=== PATIENT | female | born 1950 | race Caucasian/White ===

== ENCOUNTER 2021-05-20 09:47 | Outpatient (CLI) | payer MEDICARE, SELFPAY ==
--- NOTE | ~2021-05-20 | DEXA_ITS ---
Bone Density Report Name: Barbara Bynum Age: 71 Sex: Female Ethnicity: White Date of : 1950 Indication: osteopenia; monitoring treatment; height loss; prior fracture; postmenopausal Referring Provider: ANNABEL TEJADA Study: Bone densitometry was performed. Exam Date: May 20, 2021 Accession number: [id number] Bone Density: Region BMD T-score Z-score Classification AP Spine (L1-L4) 0.812 -2.1 0.0 Osteopenia Femoral Neck (Left) 0.550 -2.7 -0.9 Osteoporosis Total Hip (Left) 0.649 -2.4 -0.9 Osteopenia Total Hip Bilateral Avg 0.698 -2.0 -0.5 Osteopenia Femoral Neck (Right) 0.659 -1.7 0.1 Osteopenia Total Hip (Right) 0.747 -1.6 -0.1 Osteopenia World Health Organization criteria for BMD impression classify patients as: Normal (T-score at or above -1.0), Osteopenia (T-score between -1.0 and -2.5), or Osteoporosis (T-score at or below -2.5). 10-year Fracture Risk: FRAX not reported because: Some T-score for Spine Total or Hip Total or Femoral Neck at or below -2.5 Treated for osteoporosis Previous Exams: Region Exam Age BMD T-score BMD Change BMD Change Date g/cm2 vs Baseline vs Previous AP Spine(L1-L4) 05/20/2021 71 0.812 -2.1 -0.040(-4.7%)* -0.048(-5.5%)* 03/30/2019 69 0.860 -1.7 0.007(0.8%) 0.007(0.8%) 01/21/2017 66 0.853 -1.8 Total Hip(Left) 05/20/2021 71 0.649 -2.4 -0.064(-8.9%)* -0.043(-6.2%)* 03/30/2019 69 0.691 -2.1 -0.021(-3.0%) -0.021(-3.0%) 01/21/2017 66 0.712 -1.9 Total Hip(Right) 05/20/2021 71 0.747 -1.6 -0.031(-4.0%)* -0.001(-0.2%) 03/30/2019 69 0.748 -1.6 -0.030(-3.8%)* -0.030(-3.8%)* 01/21/2017 66 0.778 -1.3 *Denotes significance at 95% confidence level, LSC for AP Spine = 0.022 g/cm2, LSC for Total Hip = 0.027 g/cm2 Clinical Information Provided by Patient: Has had a low trauma fracture Is being treated for osteoporosis Has used the following medications: Vitamin D Patient maximum height was 68.5 Menopause Age: 54 No regular weight bearing exercise Does not regularly consume dairy products Onset of menses at age 14 Number of children 3 Impression: The patient has established osteoporosis, based on the Left Femoral Neck T-score and the existence of a prior fracture. The patient has risk factors, including: previous fracture. The BMD for the AP Spine(L1-L4) decreased, changing by -5.5% since the last DXA exam. The BMD for the Total Hip(Left) decreased, changing by -6.2% since the last DX
== END 2021-05-20 09:48 | disposition home or self-care (01) ==
DX: Z78.0 Asymptomatic menopausal state (principal); M85.88 Other specified disorders of bone density and structure, other site; M85.852 Other specified disorders of bone density and structure, left thigh; M85.851 Other specified disorders of bone density and structure, right thigh; M81.0 Age-related osteoporosis without current pathological fracture
CPT/HCPCS: 77080

== ENCOUNTER 2021-07-16 16:47 | Emergency (ER) | payer MEDICARE, SELFPAY ==
[2021-07-16 17:09] VITALS: BP 158/88; PULSE 77; RESP 18; TEMP 37.7; O2SAT 99
--- NOTE | 2021-07-16 17:22 | ED.LOWEXIN ---
HPI - Extremity Injury (Lower) General Chief Complaint: Extremity Problem,Nontraumatic Stated Complaint: Lt lower leg pain Source: patient and RN notes reviewed Limitations: no limitations History of Present Illness HPI Narrative: The patient, active on few meds, presents with left distal knee/proximal calf pain. Patient states she has 1/2-week history of medial gastroc pain that is mild, worse with motion, better at rest. Patient recalls she got out of bed quickly then and heard a audible snap followed by pain-which has been gradually improving.. No distal calf pain, Achilles tenderness, bleeding, deformity; she repeatedly declined hospital referral for higher level testing/scanning [for DVT, Moreland's cyst, etc.]. Related Data Home Medications Medication Instructions Recorded Confirmed amlodipine 2.5 mg-benazepril 10 mg 1 cap PO DAILY 05/07/21 07/16/21 capsule atorvastatin 10 mg tablet 10 mg PO DAILY 05/07/21 07/16/21 cholecalciferol (vitamin D3) 50 50 mcg PO DAILY 05/07/21 07/16/21 mcg (2,000 unit) capsule melatonin 3 mg capsule 3 mg PO QHS 05/07/21 07/16/21 pantoprazole 40 mg tablet,delayed 40 mg PO QAM 05/07/21 07/16/21 release trazodone 50 mg tablet 50 mg PO QHS PRN 05/07/21 07/16/21 vitamin B complex 1 tablet PO DAILY 05/07/21 07/16/21 Allergies Allergy/AdvReac Type Severity Reaction Status Date / Time No Known Allergies Allergy Verified 07/16/21 17:03 Review of Systems Review of Systems: General/Constitutional: No weight loss,fever Eyes: N0: Redness,discharge Ears/Nose/Throat: No: Epistaxis,ear discharge Respiratory: Denies: Hemoptysis Gastrointestinal: No Vomiting, Bleeding-rectal Skin: No Lumps, eruption Neurologic: No Focal Weakness,Sz Hematologic: Denies: Petechiae/Purpura Psychiatric: No: Suicida ideationl All Other Systems: Reviewed and Negative [facility] Past Medical History Medical History Ankle sprain Claustrophobia Degenerative joint disease of knee Fracture of 5th metatarsal GERD (gastroesophageal reflux disease) Hypertension Kidney disease Knee effusion, right Osteoporosis Right ankle pain Surgical History Surgical History History of hand surgery History of stapedectomy Family History Family History Other Diabetes mellitus Family history of arthritis Hypertension Kidney disorder Social History Social History Alcohol intake: current Alcohol use details: 12 per year Substance use: never Substance use type: does not use Gender identity (if verbalized by the patient): Female Comments At time of signature, agree with nursing past medical, surgical, social and family history. There is no relevant family history pertinent to the presenting complaint Exam Narrative: General Appearance: Well appearing, Conjunctiva clear Ears: External ear normal, Auditory canal normal Nose: Normal nose, Nares clear Mouth/Throat: Normal appearing, Normal lips Neck: Supple Respiratory: Airway patent, No respiratory distress MS- LLE: Normal strength (mostly intact,sl limited flexion/extension by pain), Tenderness (proximal medial gastrocnemius, with mild decreased ROM), Scant swelling (medially), Other (no anterior drawer, no collateral laxity, no Roberson test, nor Homans test) Skin: Warm, Dry, Normal color Neurological: A&O x3, Normal affect Course Vital Signs Vital signs: Vital Signs Temperature 99.8 F H 07/16/21 17:09 Pulse Rate 77 07/16/21 17:09 Respiratory Rate 18 07/16/21 17:09 Blood Pressure 158/88 H 07/16/21 17:09 Pulse Oximetry 99 07/16/21 17:09 Temperature 99.8 F H 07/16/21 17:09 Pulse Rate 77 07/16/21 17:09 Respiratory Rate 18 07/16/21 17:09 Blood Pressure 158/88 H 07/16/21 17:09 Pulse Oximetry 99 07/16/21 17:09
== END 2021-07-16 17:31 | disposition home or self-care (01) ==
PROVIDERS: Emergency Provider Emergency Medicine
DX: S86.112A Strain of other muscle(s) and tendon(s) of posterior muscle group at lower leg level, left leg, initial encounter (principal); X50.9XXA Other and unspecified overexertion or strenuous movements or postures, initial encounter; M17.10 Unilateral primary osteoarthritis, unspecified knee; K21.9 Gastro-esophageal reflux disease without esophagitis; I10 Essential (primary) hypertension; M81.0 Age-related osteoporosis without current pathological fracture
CPT/HCPCS: 99212; G0463

== ENCOUNTER 2021-10-31 16:28 | Emergency (ER) | payer MEDICARE, SELFPAY ==
[2021-10-31 16:37] VITALS: BP 150/92; PULSE 76; RESP 18; TEMP 37.3; O2SAT 99
--- NOTE | 2021-10-31 17:10 | ED.FEMALEGU ---
HPI - Female Genitourinary General Chief complaint: Urogenital-Female Stated complaint: Possible UTI Time Seen by Provider: 10/31/21 16:50 Source: patient, RN notes reviewed and old records reviewed Mode of arrival: ambulatory Limitations: no limitations History of Present Illness HPI Narrative: 71 year old female who presents to [facility] care with complaints of frequency of urination and burning with urination which started today. Patient states that she does have some perineal pressure but denies any lower back pain or any flank pain. Patient states that she does have Stage III renal disease and sees kidney specialist. Patient denies any nausea or vomiting or any fevers chills or sweats, denies vaginal discharge or concern for STD's. MD elicited complaint: dysuria and other (urinary frequency) Related Data Home Medications Medication Instructions Recorded Confirmed amlodipine 2.5 mg-benazepril 10 mg 1 cap PO DAILY 05/07/21 10/31/21 capsule atorvastatin 10 mg tablet 10 mg PO DAILY 05/07/21 10/31/21 cholecalciferol (vitamin D3) 50 50 mcg PO DAILY 05/07/21 10/31/21 mcg (2,000 unit) capsule melatonin 3 mg capsule 3 mg PO QHS 05/07/21 10/31/21 pantoprazole 40 mg tablet,delayed 40 mg PO QAM 05/07/21 10/31/21 release trazodone 50 mg tablet 50 mg PO QHS PRN 05/07/21 10/31/21 vitamin B complex 1 tablet PO DAILY 05/07/21 10/31/21 Allergies Allergy/AdvReac Type Severity Reaction Status Date / Time No Known Allergies Allergy Verified 10/31/21 16:43 Review of Systems Review of Systems: CONSTITUTIONAL: Denies fever, chills, or sweats. EYES: Denies visual changes, redness, or discharge. ENT: Denies rhinorrhea, congestion, sore throat, or otalgia. CARDIOVASCULAR: Denies chest pain, palpitations, or edema. RESPIRATORY: Denies cough or dyspnea. GASTROINTESTINAL: Denies abdominal pain, nausea, vomiting, or diarrhea. GENITOURINARY:Positive for perineal pressure and dysuria or hematuria with urinary frequency SKIN: Denies rash or itching. MUSCULOSKELETAL: Denies back pain, joint pain, or myalgia. NEUROLOGIC: Denies headache, numbness, or weakness. PSYCHIATRIC: Denies anxiety or depression. All systems reviewed & are unremarkable except as noted in HPI and below PMFSH Past Medical History Medical History Ankle sprain Claustrophobia Degenerative joint disease of knee Fracture of 5th metatarsal GERD (gastroesophageal reflux disease) Hypertension Kidney disease Knee effusion, right Osteoporosis Right ankle pain Surgical History Surgical History History of hand surgery History of stapedectomy Family History Family History Other Diabetes mellitus Family history of arthritis Hypertension Kidney disorder Social History Social History Alcohol intake: current Alcohol use details: 12 per year Substance use: never Substance use type: does not use Gender identity (if verbalized by the patient): Female Exam Narrative: GENERAL: Well-appearing, well-nourished, and in no acute distress. HEAD: Normocephalic, atraumatic. EYES: PERRLA and EOMI. ENT: Nares clear, no rhinorrhea or epistaxis. Mucous membranes moist. NECK: Supple.no lymphadenopathy CHEST: Clear to auscultation. No respiratory distress.SAO2 99% on room air HEART: Regular rate and rhythm. No murmur heard. Normal peripheral pulses. ABDOMEN: Soft, nontender to palpation, nondistended, normal active bowel sounds.no nausea vomiting or diarrhea, perineal pressure reported, no CVA tenderness on examination. EXTREMITIES: Normal range of motion. No edema. SKIN: Warm, dry, no rash. NEURO: No focal deficits. Alert and oriented x3. Course Vital Signs Vital signs: Vital Signs Temperature 37.3 C 10/31/21 16:37 Pulse Rate 76 10/31/21 16:37 Respiratory Rat
== END 2021-10-31 17:16 | disposition home or self-care (01) ==
PROVIDERS: Emergency Provider Registered Nurse; PCP Nurse Practitioner
DX: N39.0 Urinary tract infection, site not specified (principal); I12.9 Hypertensive chronic kidney disease with stage 1 through stage 4 chronic kidney disease, or unspecified chronic kidney disease; N18.30 Chronic kidney disease, stage 3 unspecified
CPT/HCPCS: 81003; 87077; 87086; 87186; 99213; G0463